=== PATIENT | female | born 1955 | race Caucasian/White ===

== ENCOUNTER → 2016-12-07 | Outpatient (CLI) | payer OTHER ==
[2016-12-07 13:22] LABS: HDL CHOLESTEROL 37.6 MG/DL (40.0-60.0)
== END ==
LOC: PLAB 08:22
PROVIDERS: ATTEND Family Medicine
DX: E78.5 Hyperlipidemia, unspecified (principal); E03.2 Hypothyroidism due to medicaments and other exogenous substances; Z13.1 Encounter for screening for diabetes mellitus
CPT/HCPCS: 80061; 82947; 84443

== ENCOUNTER → 2017-01-02 | Day surgery (SDC) | payer OTHER ==
[~2017-01-02] MED LIST: BUPIVACAINE/EPINEPHRINE 0.5% 50 ML VIAL ONE; ISOSULFAN BLUE 50 MG/5 ML VIAL SQ ONE; LACTATED RINGER'S 1000 ML INJ 1,000 ML ONE; LIDOCAINE 1%/EPINEPHrine 1:100,000 SOLN 20 ML VIAL ONE; MEPERIDINE HCL 25 MG/ML VIAL ONE; MIDAZOLAM HCL 2 MG/2 ML VIAL ONE; ONDANSETRON HCL 4 MG/2 ML VIAL IV PUSH ONE; PROPOFOL 200 MG/20 ML AMP IV ONE; SODIUM CHLORIDE 0.9% INJ 10 ML ONE; ceFAZolin INJ 1,000 MG VIAL ONE
--- NOTE | 2017-01-02 12:59 | TN ---
cc: VALENTINO FELIPE M.D., RUBY ANNE E. M.D. DATE OF SURGERY: 01/02/2017 PREOPERATIVE DIAGNOSIS Left-sided breast cancer, in need of breast conservation and need of Qepggq-I-Brgy. POSTOPERATIVE DIAGNOSIS Left-sided breast cancer, in need of breast conservation and need of Udohjv-Z-Spsf. PROCEDURE 1. Right-sided Zwdkwq-H-Nrpy placement under fluoroscopic guidance. 2. Removal of skin lesion left chest wall. 3. Injection of Lymphazurin blue dye for sentinel node identification x3 with lymphatic mapping. 4. Identification of three sentinel nodes in the left axillary region with removal of some axillary tissue. 5. Needle-localized quadrantectomy upper outer quadrant to the left breast. ANESTHESIA General. SURGEON Dr. Felipe. FINISHER POLISHER Ms. Monica Ferguson. INDICATIONS This is a pleasant 61-year-old female who was found to have left-sided breast cancer. Dr. Muñiz saw her and would like an Smesjw-E-Ykdw placed for chemotherapy, in addition to the postoperative radiation therapy. PROCEDURE The patient was taken to the operating room and placed in the supine position. After anesthesia both her chest and breasts were prepped with Betadine. She had been given preoperative antibiotics. A time-out is done. We first direct our attention to the left infraclavicular area. We identify the right infraclavicular area. We identify the right clavicle and anesthetize the infraclavicular area on the right side for the Wapirn-Z-Tfoq placement. We placed the needle into the subclavian vein, under fluoroscopic guidance, the guidewire was threaded into the superior vena cava and the subcutaneous pocket is then made. A catheter is threaded through the introducer dilator after measuring it to 19 and 1/2 cm so it lays in the superior vena cava. The dilator was removed. The Catheter was threaded through the introducer and the introducer is then removed. The catheter is then connected to the port at the 19 and 1/2 cm surya, snapped into place, aspirates blood quite easily and flushed with the heparinized saline solution. we then close the deep subcutaneous pocket, deep layer was closed with 3-0 Vicryl. Skin is closed with 4-0 Vicryl. Steri-Strips are applied, sterile bandage. We then direct our attention to left side. We had already injected the Lymphazurin blue dye prior to draping in the needle track surya that is about the 3 o'clock position. It is coursing lateral to medial in a slightly inferior, superior direction. First we direct our attention to the axillary region where a hot spot can be localized. It is close to the skin lesion. The skin lesion is removed with elliptical incision and passed off the field labeled skin lesion chest wall breast area. We then make a incision in the axillary region incorporating the skin lesion excision and dissect down to the deep tissue in the axillary region identifying three sentinel nodes, the first one with ex vivo count of [id number], some axillary tissue was removed in specimen number two, specimen number three was axillary lymph node #2 which is 1284 and a third sentinel node with a ex vivo count of 1849. No other hot spot is seen in the axillary region. We then irrigate copiously. Hemostasis is assured. The deep layers are closed with 3-0 Vicryl and skin with 4-0 Vicryl. Of note, the first sentinel node that was removed was quite large and probably represented the node that was seen on the MRI. No other hot spots were seen as well in the mid clavicular area or sternal area. We then direct our attention to the guidewire that again is at the 3 o'clock position, going from the lateral to medial direction, slightly inferior to superior direction. We make an elliptical incision around the guidewire because there is some skin necrosis associated with the previous biopsy where the guidewire is located. We make this elliptical incision, dissect circumferentially around the needle and the mass that can be palpated. The area is then completely removed, marked with a short stitch superiorly and long stitch placed laterally. This is sent down to imaging where Dr. Garzon states the area in question appears to be excised. I took a little bit more on the inferior margins to be assured that we have clear margins inferiorly to normal-appearing breast tissue and some more tissue on the superior margin, superior margin is marked superiorly with a short stitch and a long stitch placed laterally as an additional superior margin to be assured clear margins as this tissue was a little bit rougher and slightly abnormal. No other gross abnormalities noted. After we finished with the excision of the quadrantectomy the deep layer was closed with 3-0 Vicryl and skin was closed with 4-0 Vicryl. Steri-Strips were applied. Sterile bandage was applied. The patient tolerated the procedure well with no immediate postop complications. Valentino Felipe MD JRADHA/MARCIA /12:02 PM /12:35 PM MTDLynne
== END | disposition home or self-care (01) ==
LOC: ESDC 06:29
PROVIDERS: ATTEND Surgery
DX: D05.12 Intraductal carcinoma in situ of left breast (principal); Z45.2 Encounter for adjustment and management of vascular access device; D22.5 Melanocytic nevi of trunk
CPT/HCPCS: 00400; 00532; 01610; 11401; 19125; 36561; 38525; 38792; 77001; 88305; 88307; C1788; J0690; J1642; J2175; J2250; J2405; J3010; J7120; Q9968

== ENCOUNTER → 2017-01-18 | Day surgery (SDC) | payer OTHER ==
[~2017-01-18] MED LIST changes: -BUPIVACAINE/EPINEPHRINE 0.5% 50 ML VIAL ONE; +BUPIVACAINE/EPINEPHRINE 0.5% PF 30 ML VIAL ONE; -ISOSULFAN BLUE 50 MG/5 ML VIAL SQ ONE; +LACTATED RINGER'S 1,000 ML BAG IV ONE; -LIDOCAINE 1%/EPINEPHrine 1:100,000 SOLN 20 ML VIAL ONE; +LIDOCAINE 1%/EPINEPHrine 1:100,000 SOLN 50 ML VIAL ONE; -SODIUM CHLORIDE 0.9% INJ 10 ML ONE
--- NOTE | 2017-01-18 18:08 | TN ---
cc: GURPREET NAVA MD, JOSEPH D. M.D. DEVERAS, RUBY ANNE E. M.D. DATE OF SURGERY 01/18/2017 PREOPERATIVE DIAGNOSIS Left breast cancer with positive margin along the medial edge. POSTOPERATIVE DIAGNOSIS Left breast cancer with positive margin along the medial edge. PROCEDURE 1. Re-excision of left breast medial margin. 2. Placement of intraoperative radiation therapy device with delivery of the intraoperative radiation ANESTHESIA General. SURGEON Dr. Felipe. INDICATIONS This is a pleasant 61-year-old female who had a left-sided breast cancer. She underwent an excision. We had essentially clear margins of her invasive tumor but she had a medial margin that involved some DCIS. Plans were made for re-excision. Dr. Bañuelos felt she was a good candidate for intraoperative radiation therapy and thusly was set up for excision of the medial margin for clear margins and placement of the radiation device for intraoperative radiation therapy. PROCEDURE The patient taken to the operating room and placed supine on the operating table. After anesthesia her left breast was prepped with Betadine. The previous incision along the inferior aspect of the breast about the 3-4 o'clock position was reopened. We entered the cavity which is about 2 cm deep in the subcutaneous tissue. The cavity is evacuated of serous fluid. The medial margin is then grasped with an Allis clamp and we take out the superior margin of the medial superior margin and this was marked with short stitch placed superiorly and a long stitch placed laterally for orientation, and then a second specimen was taken out of the inferior medial margin and marked similarly with a short stitch superiorly and a long stitch placed laterally. The area is assured hemostasis. We then sized the cavity and it appears that the #4 sizer radiation device is then placed into the cavity. The skin incision needs to be elongated about 0.5 cm to accommodate this. Once this is placed, minimal movement. We then placed a pursestring around the top of the subcutaneous tissue to cinch this together. This is then checked with ultrasound and there appears good depth of the device with no air pockets. This is checked circumferentially. After this was done the catheter device was then removed. The drape was then applied in the typical fashion and then the catheter for the radiation device was then entered into the cavity and placed with no tension. The pursestring suture was then cinched down. We then reconfirmed the placement of four quadrants with ultrasound and the depth ranged from 1.7 to a little over 2.0 cm circumferentially. There were no air pockets circumferentially as well. I then draped the breast, placed a lead shield over the device. And then Dr. Bañuelos proceeded to complete the radiation therapy. See his documentation for full details. After the time I re-entered the room and the stitch was removed. The device was removed. We then irrigate, assure hemostasis. We then close the deep layer with a 3-0 Vicryl and skin is closed with 4-0 Vicryl. Steri-Strips applied. Sterile bandage applied. The patient tolerated the procedure well and had no immediate postop complications. Valentino Felipe MD JDB/KK /4:25 PM /5:44 PM AVINASH
--- NOTE | 2017-01-19 11:30 | RADONCENDT ---
END OF TREATMENT SUMMARY PRIMARY REFERRING PHYSICIAN: Valentino Felipe CC: Valentino Felipe DIAGNOSIS: Primary C50.812 - Malignant neoplasm of overlapping sites of left female breast, Diagnosed 12/28/2016 (Active) PRESCRIPTION AND TREATMENT: 2000 cGy to surface of applicator- TREATED PLAN FRACTIONS AND DATES: Course: One fraction delivered on 01/18/2017 TOLERANCE: Patient completed treatment without complications. FOLLOW UP PLAN: Patient to be seen in 4 weeks. Gordon Plummer MD 01/19/2017 11:30:13 AM This report was verified and signed electronically [facility] [address] [facility] [place] [address] RADIATION ONCOLOGY END OF TREATMENT SUMMARY Date: 01/18/2017 Patient Name: Pebbles Crain Date of : 1955 Age: 61 Sex: Female
--- NOTE | 2017-01-19 11:30 | RADONCOP ---
OPERATIVE REPORT DATE OF SURGERY: 01/18/2017 REFERRING PHYSICIAN: Valentino Felipe PREOPERATIVE DIAGNOSIS: C50.812 - Malignant neoplasm of overlapping sites of left female breast POSTOPERATIVE DIAGNOSIS: C50.812 - Malignant neoplasm of overlapping sites of left female breast PROCEDURE: Intraoperative Radiation Therapy to the . SURGEON: Valentino Felipe ANESTHESIA: General ESTIMATED BLOOD LOSS: Minimal INDICATIONS: Patient is a 61 year old female presenting with invasive ca. She has elected to receive targeted intraoperative radiation therapy to the . DESCRIPTION OF PROCEDURE: Patient was taken to the operating room and placed on the table in the supine position. Following induction of general anesthesia, the and arm were prepped and draped sterilely. Ultrasound was performed of the breast to document the location of the breast malignancy. The wound was prepared for intraoperative radiation therapy. Based on the diameter of the cavity, a 4 cm radiation applicator was selected for the delivery of intraoperative radiation therapy. The applicator was then sterilely mounted onto the Intrabeam Stand. Retracting sutures were placed within the skin to be used to retract the skin edges away from the radiation source. The 4 cm Radiation applicator was then sterilely inserted into the wound. The superficial purse-string suture was tied down. Ultrasound was performed of the breast to document conformity of the surgical margins and the distance from the applicator to the skin surface (0.82 cm). The retracting sutures were then secured and a moistened lap pad was placed on the skin surface, followed by an external radiation barrier. Intraoperative radiotherapy was then initiated by the Radiation Oncologist. Total treatment time was 25 minutes. Upon completion of the intraoperative radiotherapy treatment, the radiation applicator, purse-string sutures and retracting sutures were removed from the wound. The wound was once again irrigated. Hemostasis was confirmed. The patient was then turned back over to the surgeon, Dr. Felipe in stable condition for completion of surgical procedure. Gordon Plummer MD 01/19/2017 11:29:58 AM This report was verified and signed electronically [facility] [address] [place] [id number] RADIATION ONCOLOGY OPERATIVE REPORT Date: 01/18/2017 Patient Name: Pebbles Crain
== END | disposition home or self-care (01) ==
LOC: ESDC 10:13
PROVIDERS: ATTEND Surgery
DX: C50.812 Malignant neoplasm of overlapping sites of left female breast (principal)
CPT/HCPCS: 00400; 19301; 77290; 77300; 77334; 77370; 77424; 88307; J0690; J1642; J2175; J2250; J2405; J3010; J7120; 77469